=== PATIENT | female | born 1990 | race Caucasian/White ===

== ENCOUNTER 2017-09-07 09:29 | Inpatient (IN) | payer OTHER ==
[2017-09-06 10:01] LABS: HEMATOCRIT 41.1 % (36.0-48.0); HEMOGLOBIN 14.5 g/dL (12-16); MCH 33.3 pg (26.0-34.0); MCHC 35.3 g/dL (31.0-37.0); MCV 94.3 fL (80.0-100.0); MEAN PLATELET VOLUME 10.5 fL (7.4-10.4); RBC 4.36 10x6/uL (4.00-5.40); RDW 13.1 % (11.5-14.5); WBC 11.4 10x3/uL (4.8-10.8)
[~2017-09-07] VITALS: Ht 170.2 cm; Wt 99.3 kg
--- NOTE | ~2017-09-07 | OP ---
PATIENT NAME: MARIA ELENA MARIN MEDICAL RECORD: [id number] :91 LOCATION:[id number] ADMISSION DATE:09/07/17 SURGEON: GABRIEL SANDERS MD DATE OF OPERATION: 09/07/2017 PREOPERATIVE DIAGNOSES: 1. at 39 weeks' gestation. 2. Breech presentation. POSTOPERATIVE DIAGNOSES: 1. at 39 weeks' gestation. 2. Breech presentation. PROCEDURE: Primary low transverse section with breech extraction. SURGEON: Gabriel Sanders MD ADULT PROBATION OFFICER: Marbin Davis. ANESTHESIOLOGIST: Eben Rabago MD ANESTHETIC: Spinal. FINDINGS: Viable female infant. Korey breech presentation, Apgars 9 and 9, weight 6 pounds 4 ounces. Unremarkable uterus, tubes, and ovaries. SPECIMEN REMOVED: Placenta. SPECIMEN DISPOSITION: Discarded. EBL: 700 cc. FLUIDS: 1600 cc lactated Ringer's. URINE OUTPUT: 100 cc clear urine. COMPLICATIONS: None. DRAIN: Smith to gravity. INDICATION: The patient is a 26-year-old G1, para 0 with a breech presentation at 39 weeks' gestation. The patient was consented for a primary low transverse section after declining attempted version. DESCRIPTION OF PROCEDURE: After informed consent was assured, the patient was taken to the operating room, where anesthetic is obtained. The patient is prepped and draped in the usual sterile fashion. After assessment of the anesthetic, a low transverse incision was made on the lower abdomen, carried down to the underlying layer of the fascia, which is opened in the midline and extended laterally. The rectus bellies were dissected free superiorly and inferiorly and then in the midline. The peritoneum was entered and the peritoneal opening extended with good visualization of the bladder. A DeLee all-purpose retractor was inserted and bladder flap developed. The bladder blade was now reinserted and a low transverse hysterotomy was performed. The was delivered onto the abdomen using standard breech extraction OPERATIVE REPORT [id number] MARIA ELENA MARIN PHIL maneuvers. The cord was doubly clamped and cut and the infant was passed to the attendant. Placenta was delivered via Crede maneuver. Uterus was now exteriorized, cleared of all clot and debris and closed in 2 layered fashion with chromic stitch. A single [id number] stitch is used to apply along the incision site where bleeding continues, and this obtains adequate hemostasis. Uterus has now returned to the abdomen, inspected, and again found to be hemostatic. The peritoneum was reapproximated with a single loose stitch of chromic and then the fascia closed with looped PDS. The subcutaneous tissue was irrigated. Bleeding vessels cauterized and the skin reapproximated with a subcuticular stitch. Sterile dressing is applied. Sponge, lap, needle count has been correct times 2 at the close of this procedure. TRANSINT:[id number] Voice Confirmation ID: [id number] DOCUMENT ID: [id number] GABRIEL SANDERS MD at 0906 CC: [id number] DICTATION DATE: 09/07/17 1611 HORSERADISH MAKER: 09/07/17 1801 ADM IN [facility] [address] [place] [address]
[2017-09-07 07:28] LABS: RAPID PLASMA REAGIN Non Reactive (Non Reactive)
[2017-09-07] MEDS ORDERED: PRENATAL COMPLE1 TAB PO (10:49)
[2017-09-07 10:50] VITALS: BP 133/89; Ht 170.2 cm; Wt 99.3 kg
[2017-09-07] MEDS ORDERED: COLACE100 MG PO (10:50)
[2017-09-07 14:13] LABS: APPEARANCE SLT CLOUDY (CLEAR); BILIRUBIN NEGATIVE (NEGATIVE); COLOR YELLOW (YELLOW); GLUCOSE NEGATIVE (NEGATIVE); KETONE NEGATIVE (NEGATIVE); NITRITE NEGATIVE (NEGATIVE); PROTEIN NEGATIVE (NEGATIVE); UROBILINOGEN NORMAL (NORMAL)
[2017-09-07 14:15] LABS: BACTERIA MANY /hpf (NONE SEEN); MUCUS <1+ /lpf (NONE SEEN); WHITE CELLS - URINE 0-5 /hpf (0-5)
[2017-09-07 16:51] VITALS: BP 130/78
[2017-09-07 19:40] VITALS: BP 145/73
[2017-09-08 00:15] VITALS: BP 117/71
[2017-09-08 05:00] VITALS: BP 136/77
[2017-09-08 05:17] LABS: BASOPHILS 0.1 % (0-2); EOSINOPHILS 0.1 % (0-7); HEMATOCRIT 36.9 % (36.0-48.0); HEMOGLOBIN 12.7 g/dL (12-16); IMMATURE GRANULOCYTES 0.3 % (0-5); LYMPHOCYTES 7.6 % (15-50); MCH 32.7 pg (26.0-34.0); MCHC 34.4 g/dL (31.0-37.0); MCV 95.1 fL (80.0-100.0); MEAN PLATELET VOLUME 10.7 fL (7.4-10.4); MONOCYTES 6.9 % (2-11); PLATELET COUNT 169 10x3/uL (130-400); RBC 3.88 10x6/uL (4.00-5.40); RDW 13.3 % (11.5-14.5)
[2017-09-08 05:22] LABS: WBC 14.4 10x3/uL (4.8-10.8)
[2017-09-08 08:55] VITALS: BP 120/78
[2017-09-08 11:47] VITALS: BP 121/70
[2017-09-08 15:30] VITALS: BP 133/84
[2017-09-08 19:30] VITALS: BP 127/80
[2017-09-09 00:02] VITALS: BP 124/70
[2017-09-09 04:16] VITALS: BP 117/70
[2017-09-09 07:45] VITALS: BP 128/82
== END 2017-09-09 11:45 | disposition home or self-care (01) | DRG 766 ==
LOC: D.LD 09:29
PROVIDERS: Obstetrics & Gynecology
PROC: 10D00Z1 Extraction of Products of Conception, Low, Open Approach (ICD-10-PCS; 2017-09-07)
PROC: 10907ZC Drainage of Amniotic Fluid, Therapeutic from Products of Conception, Via Natural or Artificial Opening (ICD-10-PCS; principal; 2017-09-07 13:15)
DX: O32.1XX0 Maternal care for breech presentation, not applicable or unspecified (principal); Z3A.39 39 weeks gestation of pregnancy; Z37.0 Single live birth

== ENCOUNTER → 2018-01-01 15:46 | Outpatient (CLI) | payer OTHER ==
[2017-09-07 10:50] VITALS: BMI 34.4
[~2018-01-01 15:46] MED LIST: COLACE100 MG PO; MACROBID100 MG PO; PRENATAL COMPLE1 TAB PO
== END | disposition home or self-care (01) ==
LOC: D.MRI 15:46
DX: M25.562 Pain in left knee (principal)

== ENCOUNTER 2018-01-20 05:32 | Emergency (ER) | payer OTHER ==
[~2018-01-20] VITALS: Ht 170.2 cm; Wt 86.4 kg
[~2018-01-20 05:32] MED LIST changes: -MACROBID100 MG PO
[2018-01-20 05:38] VITALS: BP 120/88; Ht 170.2 cm; Wt 86.4 kg
[2018-01-20 05:53] LABS: APPEARANCE CLOUDY (CLEAR); COLOR AMBER (YELLOW); HCG URINE NEGATIVE (NEGATIVE)
[2018-01-20 05:54] LABS: SPECIFIC GRAVITY 1.015 (1.005-1.020)
[2018-01-20 05:56] LABS: BACTERIA MANY /hpf (NONE SEEN); WHITE CELLS - URINE >50 /hpf (0-5)
[2018-01-20] MEDS ORDERED: MACROBID100 MG PO (06:11)
== END 2018-01-20 06:42 | disposition home or self-care (01) ==
LOC: D.ER 05:32
PROVIDERS: Emergency Medicine
DX: N39.0 Urinary tract infection, site not specified (principal); R11.2 Nausea with vomiting, unspecified; R10.9 Unspecified abdominal pain